=== PATIENT | female | born 1985 | race Hispanic/Latino ===

== ENCOUNTER 2019-08-27 14:17 | Emergency (ER) | payer OTHER ==
[2019-08-27] MEDS ORDERED: Lidocaine 1% PF 5 ML VIAL ONE (14:57)
[2019-08-27] MEDS ORDERED: Lidocaine 1% (PF) 30 ML VIAL ONE (15:02)
[2019-08-27] MEDS ORDERED: Adacel (T-DAP) 0.5 ML SYRINGE ONE (15:05)
[2019-08-27] MEDS ORDERED: Bacitracin 1 PK ONE (16:38)
== END 2019-08-27 16:47 | disposition home or self-care (01) ==
LOC: ERS 14:17
DX: S51.812A Laceration without foreign body of left forearm, initial encounter (principal); W26.0XXA Contact with knife, initial encounter
CPT/HCPCS: 12002; 90471; 90715; J2001

== ENCOUNTER 2019-09-11 15:46 | Emergency (ER) | payer OTHER | END 2019-09-11 17:40 | disposition home or self-care (01) | LOC: ERS 15:46 | DX: S51.812D Laceration without foreign body of left forearm, subsequent encounter (principal); W26.0XXD Contact with knife, subsequent encounter ==

== ENCOUNTER 2019-11-15 14:23 | Emergency (ER) | payer OTHER, SELFPAY ==
[~2019-11-15 14:23] MED LIST: Iopamidol-370 76% 500 ML 1 ML ONE
[2019-11-15] MEDS ORDERED: Benzocaine 20% Spray 60 ML CAN ONE (15:15)
[2019-11-15] MEDS ORDERED: Lidocaine 1% w/Epinephrine 1:100K 20 ML VIAL ONE (15:15)
[2019-11-15] MEDS ORDERED: Ondansetron PF 4 MG/2 ML Vial ONE (15:41)
[2019-11-15] MEDS ORDERED: Morphine 4 MG/ML VIAL ONE (15:41)
[2019-11-15 15:55] LABS: #Basophils 0.1 thou/uL (0.0-0.2); #Eosinphils 0.3 thou/uL (0.0-0.7); #Lymphocytes 2.2 thou/uL (1.20-3.40); #Monocytes 0.8 thou/uL (0.11-0.59); #Neutrophils 13.1 thou/uL (1.40-6.50); %Basophils 0.4 % (0.0-1.0); %Eosinophils 1.8 % (0.0-10.0); %Lymphocytes 13.6 % (21.0-51.0); %Neutrophils 79.3 % (42.0-75.0); Hemoglobin 9.9 g/dL (12.0-16.0); Mean Corpuscular HGB CONC 29.4 g/dL (32.0-36.0); Mean Corpuscular Volume 81.8 fL (78.0-98.0); Mean Platelet Volume 8.8 fL (7.4-10.4); Platelet Count 547 thou/uL (130-400); RBC Distribution Width 18.2 % (11.5-14.5); Red Blood Cell (RBC) Count 4.11 mill/uL (4.20-5.40); White Blood Cell (WBC) Count 16.5 thou/uL (4.8-10.8)
[2019-11-15 16:05] LABS: BHCG - Serum Negative (NEGATIVE); Pregs Control Background? CLEAR/WHITE (CLR/WHITE); Pregs Control Bar Appear? YES (CONTROL BAR)
[2019-11-15 16:14] LABS: ALT (SGPT) 13 U/L (8-55); AST (SGOT) 18 U/L (5-34); Albumin 4.5 g/dL (3.5-5.0); Alkaline Phosphatase 131 U/L (40-110); Anion Gap 16 mmol/L (10-20); BUN (Urea Nitrogen) 7 mg/dL (7.0-18.7); Bilirubin, Total 0.5 mg/dL (0.2-1.2); Calc. Creatinine Clearance 0 mL/min (70-130); Calcium 9.6 mg/dL (7.8-10.44); Carbon Dioxide 23 mmol/L (22-29); Chloride 102 mmol/L (98-107); Estimated GFR-MDRD 90; Glucose 89 mg/dL (70-105); Potassium 3.6 mmol/L (3.5-5.1); Protein, Total 10.5 g/dL (6.0-8.3); Sodium 137 mmol/L (136-145)
[2019-11-15 16:21] LABS: Anisocytosis SLIGHT = 6-15 cells (100X) (0-5/hpf); Hypochromia SLIGHT = 6-15 cells (100X) (0-5/hpf); MDiff Complete? YES; Ovalocytes SLIGHT = 2-5 cells (100X) (0-1/hpf); Platelet Morphology Comment Appears Increased; Polychromasia SLIGHT = 2-3 cells (100X) (0-2/hpf); Target Cells SLIGHT = 2-5 cells (100X) (0-1/hpf)
--- NOTE | 2019-11-15 16:46 | CT ---
EXAM: CT NECK SOFT TISSUE POST CONTRAST: HISTORY:Throat pain x1 week COMPARISON:None CORRELATION:None FINDINGS: Brain parenchyma: No pathologic enhancement of the visualized brain parenchyma. Sinuses: Left maxillary sinus mucosal disease. Nasopharynx:Mild edematous change in the right nasopharynx with effacement of the right fossa of Neeta nmuller. Edematous change extends into the posterior oral cavity. At the right tonsillar pillar, there is a ill-defined hypodensity with incomplete rim enhancement. Evaluation is limited by dental a malgam artifact. Hypodensity measures at least 1.1 x 1.0 cm. A submucosal right tonsillar abscess is favored. Oral cavity:Edematous changes described above. There is narrowing of the oral cavity secondary to dereck ateral palatine tonsillar hypertrophy. There is also hypertrophy of the lingual tonsils. Midline fatty raphae of the tongue is preserved. Hypopharynx: No mucosal abnormality. Larynx: No mucosal abnormality. Paraspinal muscles: Symmetric attenuation of the paraspinal muscles and symmetric attenuation of the sternocleidomastoid muscles. There is a small amount of fluid in the retropharyngeal/prevertebral space. Parotid and salivary glands: Symmetric attenuation of the parotid and submandibular glands Thyroid gland: Unremarkable. Spine: Vertebral body height is maintained. No fracture. No significant central canal stenosis or sig nificant neural foraminal narrowing. Limited evaluation due to technique. Lymph nodes: Enlarged left level 2 lymph node measures 1.1 x 1.1 cm. Enlarged right level 2 lymph nod e measures 1.2 x 1.6 cm. Enlarged right level 5 lymph node measures 0.9 x 1.5 cm. Enlarged left level 5 lymph node measures 1.2 x 0.6 cm. Lung apices and upper mediastinum: Incompletely evaluated, consolidation the medial right upper lobe. IMPRESSION: 1. Bilateral palatine tonsillar hypertrophy with narrowing of the aerodigestive tract. Phlegmonous ch lillie/early developing right palatine tonsillar abscess. 2. Edematous change involving the posterior right oral cavity and nasopharynx. Effacement of the righ t fossa of Rosenmuller. 3. Sublingual and soft tissue neck lymphadenopathy, presumed to be reactive. 4. Incomplete evaluation of consolidation in the right upper lobe. Consider 2 view chest radiograph. 4. Retropharyngeal/prevertebral fluid. Transcribed Date/Time: 11/15/2019 5:33 PM
--- NOTE | 2019-11-15 17:26 | RAD ---
EXAM: Chest Two Views 11/15/2019 5:17 PM HISTORY: Abnormal CT of the soft tissues of the neck COMPARISON: CT soft tissue neck dated November 15, 2019 FINDINGS: Lungs: The airspace consolidation along the medial aspect of the right upper lobe is not well interro gated on the current examination. The appearance on the CT examination is suspicious for an area of scarring and subsegmental volume loss. Nonemergent follow-up CT of the thorax is recommended for alejandra tional characterization. Heart: Normal in size and contour. Pulmonary vessels: Normal. Costophrenic angles: Clear. Pneumothorax: None. Osseous structures:Intact. Additional findings: None. IMPRESSION: Airspace consolidation along the medial aspect of the right upper lobe is not well interrogated on th e current exam. The appearance of the CT examination of the soft tissues of the neck is suspicious for an area of scarring and subsegmental volume loss. Nonemergent follow-up CT of the thorax with con trast is recommended. No additional suspicious abnormality seen.
== END 2019-11-15 18:08 | disposition home or self-care (01) ==
LOC: ERS 14:23
DX: J36 Peritonsillar abscess (principal)
CPT/HCPCS: 36415; 42700; 70491; 71046; 80053; 84703; 85025; 87081; 87430; 96374; 96375; J2270; J2405; Q9967

== ENCOUNTER 2020-07-10 13:38 | Emergency (ER) | payer SELFPAY | END 2020-07-10 14:02 | disposition home or self-care (01) | LOC: ERS 13:38 | DX: G56.01 Carpal tunnel syndrome, right upper limb (principal) | CPT/HCPCS: 99283 ==

== ENCOUNTER 2020-07-12 23:29 | Emergency (ER) | payer SELFPAY | END 2020-07-13 02:42 | disposition left against medical advice (07) | LOC: ERS 23:29 | DX: Z53.21 Procedure and treatment not carried out due to patient leaving prior to being seen by health care provider (principal) ==

== ENCOUNTER 2020-07-13 10:33 | Emergency (ER) | payer SELFPAY | END 2020-07-13 11:48 | disposition home or self-care (01) | LOC: ERS 10:33 | DX: G56.01 Carpal tunnel syndrome, right upper limb (principal) | CPT/HCPCS: 99281 ==

== ENCOUNTER 2021-09-23 10:26 | Emergency (ER) | payer SELFPAY | END 2021-09-23 11:35 | disposition home or self-care (01) | LOC: ERS 10:26 | DX: S01.511A Laceration without foreign body of lip, initial encounter (principal); W51.XXXA Accidental striking against or bumped into by another person, initial encounter | CPT/HCPCS: 99282 ==

== ENCOUNTER 2022-01-29 11:05 | Emergency (ER) | payer SELFPAY | END 2022-01-29 14:07 | disposition home or self-care (01) | LOC: ERS 11:05 | DX: M54.2 Cervicalgia (principal); J34.89 Other specified disorders of nose and nasal sinuses | CPT/HCPCS: 70486 ==

== ENCOUNTER 2023-08-11 17:23 | Emergency (ER) | payer SELFPAY ==
[2023-08-11 18:48] LABS: SARS-CoV-2 NAA Rapid Test Not Detected (NotDetected)
== END 2023-08-11 19:31 | disposition home or self-care (01) ==
LOC: ERS 17:23
DX: J10.1 Influenza due to other identified influenza virus with other respiratory manifestations (principal); Z20.822 Contact with and (suspected) exposure to COVID-19
CPT/HCPCS: 87081; 87430; 99283